=== PATIENT | female | born 1930 | race Caucasian/White ===

== ENCOUNTER 2017-12-25 18:45 | Observation (INO) ==
[2017-12-25 19:35] LABS: Bilirubin,Urine Negative (Negative); Blood,Urine Trace (Negative); Clarity,Urine Clear (Clear); Color,Urine Yellow (Yellow); Glucose,Urine (UA) Normal (Normal); Ketones,Urine Negative (Negative); Leukocyte Esterase,Urine Negative (Negative); Nitrite,Urine Negative (Negative); Protein,Urine Negative (Neg-Trace); Specific Gravity,Urine < 1.005 (1.010-1.025); Urobilinogen,Urine Normal (Normal)
[2017-12-25 19:37] LABS: Bacteria,Urine None Seen per hpf (None-Few); Hyaline Casts,Urine None Seen per lpf (None-Few); RBC,Urine 0-3 per hpf (0-3); Squamous Epithelial Cell,Urine Many per lpf (None-Few); WBC,Urine 0-3 per hpf (0-3)
[2017-12-25 19:45] LABS: Basophils # 0.1 K/mcL (0.0-0.2); Basophils % 0.6 %; Eosinophils # 0.3 K/mcL (0.0-0.6); Eosinophils % 3.9 %; Hematocrit 34.8 % (35.3-44.9); Immature Granulocytes % 0.7 % (0-4); Lymphocytes # 1.6 K/mcL (0.6-4.6); Lymphocytes % 18.8 %; Mean Corpuscular HGB Conc 34.5 g/dL (31.6-35.5); Mean Corpuscular Hemoglobin 30.1 pg (28.0-33.3); Mean Corpuscular Volume 87.2 fL (83.0-100.0); Mean Platelet Volume 9.1 fL (9.4-12.4); Monocytes # 1.3 K/mcL (0.0-1.3); Monocytes % 15.8 %; Platelet Count 280 K/mcL (140-400); Red Blood Count 3.99 M/mcL (3.82-4.97); Red Cell Distribution Width 12.3 % (11.5-14.5); Segmented Neutrophils % 60.2 %
[2017-12-25] MEDS ORDERED: 0.9 % Sodium Chloride 1,000 ML IVC ONE (19:49)
[2017-12-25 20:08] LABS: Alanine Aminotransferase 11 Units/L (7-52); Albumin 4.1 g/dL (3.5-5.7); Albumin/Globulin Ratio 1.4 (1.1-2.2); Alkaline Phosphatase 69 Units/L (34-104); Aspartate Amino Transferase 15 Units/L (13-39); BUN/Creatinine Ratio 14 (6-26); Bilirubin,Total 0.3 mg/dL (0.3-1.0); Blood Urea Nitrogen 12 mg/dL (8-23); Carbon Dioxide 22 mEq/L (23-29); Chloride 89 mEq/L (98-107); Creatine Kinase 122 Units/L (30-223); Globulin 2.9 g/dL (2.4-3.5); Glucose 121 mg/dL (70-105); Osmolality,Calculated 257 (280-300); Potassium 3.7 mEq/L (3.5-5.1); Sodium 123 mEq/L (136-145); Troponin I < 0.03 ng/mL (< 0.04); eGFR For Non-African Americans > 60 (> 60)
[2017-12-25 20:23] LABS: Magnesium 1.8 mg/dL (1.6-2.6)
[2017-12-25] MEDS ORDERED: Isovue-370 500 ML INFUS..BTL IV ONE (20:29)
--- NOTE | 2017-12-25 20:55 | Emergency Department Note ---
Disposition Clinical Impression: Hyponatremia, Weakness Disposition: Admitted As Inpatient Condition: Good Time of Disposition: 22:35 Weakness HPI - General Chief complaint: ED Weakness Stated complaint: Weakness Time Seen by Provider: 12/25/17 19:10 Source: patient, family Limitations: no limitations Nursing Notes Reviewed: Yes Vital Signs Reviewed: Yes - History of Present Illness HPI Narrative: 87-year-old female history of hypertension presents emergency department for malaise in weakness and diarrhea. Patient states for the past 2 weeks she is been feeling very tired and fatigued. She was recently evaluated for nights ago for some abdominal discomfort and diarrhea. CT scan showed diverticulosis. Labs showed low potassium and sodium level. She was recommended to follow with her primary care physician and to increase fluid intake. Her urine culture came back positive for E. coli and she was placed on Bactrim and has taken a total of one day of medication. She followed up with her primary care physician 2 days ago and was placed on Flagyl given her history of diverticulitis. Since then she has had some increase in loose stools and had 5 episodes today. She denies any fever. She does report a cough no shortness of breath or chest pain. No lightheadedness or syncope. She continues to have abdominal discomfort that she describes as her colon hurts. She points all over to her belly. No recent travel. No urinary symptoms at this time. History of cholecystectomy. Pt Subjective Complaint: generalized weakness/fatigue Pain Scale: 0 - Related Data Home Medications Medication Instructions Recorded Confirmed Cholecalciferol (Vitamin D3) 1,000 unit PO DAILY 12/25/17 12/25/17 [Vitamin D3] Cyanocobalamin (Vitamin B-12) 1,000 mcg PO DAILY 12/25/17 12/25/17 [Vitamin B12] Losartan/Hydrochlorothiazide 1 tab PO DAILY 12/25/17 12/25/17 [Losartan-Hctz 100-25 mg Tab] Meloxicam [Meloxicam] 15 mg PO DAILY 12/25/17 12/25/17 Metoprolol Succinate [Toprol Xl] 25 mg PO DAILY 12/25/17 12/25/17 Omeprazole [PriLOSEC] 20 mg PO BIDAC 12/25/17 12/25/17 Sulfamethoxazole/Trimeth DS 1 tab PO BID 12/25/17 12/25/17 [Bactrim Ds] metroNIDAZOLE [Flagyl] 500 mg PO Q8H 12/25/17 12/25/17 Allergies Allergy/AdvReac Type Severity Reaction Status Date / Time No Known Allergies Allergy Verified 12/25/17 18:50 All systems ED: reviewed and negative except as stated. Review of Systems: As Per HPI Constitutional: Reports: weakness. Denies: fever, chills ENT ED: Denies: congestion Cardiovascular: Denies: chest pain Respiratory: Reports: cough. Denies: dyspnea Gastrointestinal: Reports: abdominal pain, nausea, diarrhea. Denies: vomiting, hematochezia Genitourinary: Denies: urgency, dysuria Musculoskeletal: Denies: back pain Integumentary: Denies: rash Neurological: Reports: weakness. Denies: headache, paresthesias Endocrine: Reports: fatigue. Denies: heat or cold intolerance Hematological/Lymphatic: Denies: easy bleeding Past Medical History - Past Medical History Attestation: Yes The following information was validated with the patient. Source: patient Medical history: Reports: arthritis, GERD, hypertension, other Psychiatric history: Reports: no psych history - Social History Smoking Status: Never smoker Smokeless Tobacco Status: No Alcohol use: Reports: none Drug use: Reports: none Physical Exam - General Limitations: no limitations General appearance: alert, in no apparent distress - Head Head exam: atraumatic, normocephalic, normal inspection - Eye Eye exam: Present: normal appearance, PERRL, EOMI - ENT ENT exam: normal exam, normal oropharynx, mucous membranes dry - Neck Neck exam: Present: normal inspection, full ROM, trachea midline - Chest Chest inspection: Present: normal inspection, symmetric chest wall rise - Respiratory Respiratory exam: Present: normal lung sounds bilaterally. Absent: respiratory distress - Cardiovascular Cardiovascular exam: Present: regular rate, normal rhythm, normal heart sounds. Absent: tachycardia, systolic murmur, diastolic murmur - Abdominal Exam Abdominal exam: Present: soft, tenderness (Diffuse), normal bowel sounds. Absent: distention, guarding, rebound, rigidity, tenderness at McBurney's Point - Extremities Exam Extremities exam: Present: normal inspection, full ROM, normal capillary refill. Absent: tenderness, pedal edema - Back Exam Back exam: Present: normal inspection, full ROM. Absent: tenderness, CVA tenderness (R), CVA tenderness (L) - Neurological Exam Neurological exam: Present: alert, oriented X3, CN II-XII intact - Expanded Neurological Exam Patient oriented to: Present: person, place, time Cranial nerves: EOM function (II, III, IV, ): Normal, facial sensation (V): Normal, facial palsy (VII): Normal, gag reflex (IX): Normal, spinal accessory function (XI): Normal, tongue deviation (XII): Normal Motor strength - LUE: 5/5 Motor strength - RUE: 5/5 Motor strength - LLE: 5/5 Motor strength - RLE: 5/5 Coma Scale Eye Opening: Spontaneous Coma Scale Motor Response: Obeys Commands Coma Scale Verbal Response: Oriented Coma Scale Total: 15 - Psychiatric Psychiatric exam: Present: normal mood, flat affect - Skin Skin exam: Present: warm, dry, intact, normal color. Absent: rash, cyanosis, diaphoresis Course Course Narrative: Patient presents with persistent malaise weakness as well as persistent diarrhea. She states she just is not feel well. She denies any chest pain but does report cough. Recently diagnosed with urinary tract infection and was placed on additional antibiotics which could be contributing to the diarrhea. On examination she does appears slightly dry. Her heart is regular rate and rhythm. Her lungs are clear auscultation bilaterally. She does have some diffuse abdominal tenderness grimaces on examination. Otherwise her exam is unremarkable. Review of her prior visit she had a full workup which did reveal some slight electrolyte abnormalities. Her CT scan shows diverticulosis without any acute findings. At this time will repeat some labs in give her fluids. Will also check a influenza. She is in agreement this plan. - Reevaluation(s) Reevaluation #1: View for labs she has a worsening hyponatremia. She is chronically hyponatremia and they be secondary to some of her medication which includes hydrochlorothiazide. She does appear more usually make than hypovolemic and SIADH is also in the differential. Will plan for admission and observation with careful hydration and monitoring. CT angiogram of the abdomen and pelvis was unremarkable for any mesenteric ischemia. At this time patient is agreement with admission. - Consultations Consultation #1: Spoke with on-call hospitalist mabel Zelaya to admit for weakness and hyponatremia. No further orders at this time Time: 22:35 Vital Signs Temperature 98.8 F 12/25/17 18:47 Pulse Rate 82 12/25/17 18:47 Respiratory Rate 18 12/25/17 18:47 Blood Pressure 190/92 12/25/17 18:47 O2 Sat by Pulse Oximetry 97 12/25/17 18:47 Temperature 98.8 F 12/25/17 23:35 Pulse Rate 87 12/25/17 23:35 Respiratory Rate 16 12/25/17 23:35 Blood Pressure 145/73 12/25/17 23:35 O2 Sat by Pulse Oximetry 97 12/25/17 23:38 Oxygen Delivery Oxygen Delivery Room Air Weakness - MDM Narrative Medical decision making narrative: Patient was discussed with my attending physician who agrees with ED management and final disposition. They independently evaluated the patient. Please refer to their attestation to this encounter for additional information. This note was generated by [employer] voice recognition software and as a result grammatical or spelling errors may occur using this program. - Medical Records Medical records reviewed: Yes I reviewed the patient's medical records. - Lab Data Lab results reviewed: Yes I reviewed the patient's lab results. Result diagrams: 12/25/17 19:36 12/25/17 19:36 Lab Results 12/25/17 12/25/17 12/25/17 Range/Units 19:09 19:36 19:36 WBC 8.4 (4.3-11.1) K/mcL RBC 3.99 (3.82-4.97) M/mcL Hgb 12.0 (11.5-15.4) g/dL Hct 34.8 L (35.3-44.9) % MCV 87.2 (83.0-100.0) fL MCH 30.1 (28.0-33.3) pg MCHC 34.5 (31.6-35.5) g/dL RDW 12.3 (11.5-14.5) % Plt Count 280 (140-400) K/mcL MPV 9.1 L (9.4-12.4) fL Immature Gran % 0.7 (0-4) % Seg Neutrophils % 60.2 % Lymphocytes % 18.8 % Monocytes % 15.8 % Eosinophils % 3.9 % Basophils % 0.6 % Neutrophils # 5.0 (1.6-8.9) K/mcL Lymphocytes # 1.6 (0.6-4.6) K/mcL Monocytes # 1.3 (0.0-1.3) K/mcL Eosinophils # 0.3 (0.0-0.6) K/mcL Basophils # 0.1 (0.0-0.2) K/mcL Sodium 123 L (136-145) mEq/L Potassium 3.7 (3.5-5.1) mEq/L Chloride 89 L (98-107) mEq/L Carbon Dioxide 22 L (23-29) mEq/L BUN 12 (8-23) mg/dL Creatinine 0.88 (0.60-1.20) mg/dL Est GFR ( Amer) > 60 (> 60) Est GFR (Non-Af Amer) > 60 (> 60) BUN/Creatinine Ratio 14 (6-26) Glucose 121 H (70-105) mg/dL Calculated Osmolality 257 L (280-300) Lactic Acid (0.5-2.2) mmol/L Calcium 10.0 (8.6-10.3) mg/dL Magnesium 1.8 (1.6-2.6) mg/dL Total Bilirubin 0.3 (0.3-1.0) mg/dL AST 15 (13-39) Units/L ALT 11 (7-52) Units/L Alkaline Phosphatase 69 (34-104) Units/L Creatine Kinase 122 (30-223) Units/L Troponin I < 0.03 (< 0.04) ng/mL Serum Total Protein 7.0 (6.4-8.9) g/dL Albumin 4.1 (3.5-5.7) g/dL Globulin 2.9 (2.4-3.5) g/dL Albumin/Globulin Ratio 1.4 (1.1-2.2) Urine Color Yellow (Yellow) Urine Clarity Clear (Clear) Urine pH 7.0 (5.0-8.0) pH Units Ur Specific [place] < 1.005 L (1.010-1.025) Urine Protein Negative (Neg-Trace) mg/dL Urine Glucose (UA) Normal (Normal) mg/dL Urine Ketones Negative (Negative) mg/dL Urine Blood Trace H (Negative) Urine Nitrite Negative (Negative) Urine Bilirubin Negative (Negative) Urine Urobilinogen Normal (Normal) mg/dL Ur Leukocyte Esterase Negative (Negative) Urine Microscopic RBC 0-3 (0-3) per hpf Urine Microscopic WBC 0-3 (0-3) per hpf Ur Squamous Epith Cells Many H (None-Few) per lpf Urine Bacteria None Seen (None-Few) per hpf Hyaline Casts None Seen (None-Few) per lpf Ur Culture Indicated? NO (NO) 12/25/17 Range/Units 19:36 WBC (4.3-11.1) K/mcL RBC (3.82-4.97) M/mcL Hgb (11.5-15.4) g/dL Hct (35.3-44.9) % MCV (83.0-100.0) fL MCH (28.0-33.3) pg MCHC (31.6-35.5) g/dL RDW (11.5-14.5) % Plt Count (140-400) K/mcL MPV (9.4-12.4) fL Immature Gran % (0-4) % Seg Neutrophils % % Lymphocytes % % Monocytes % % Eosinophils % % Basophils % % Neutrophils # (1.6-8.9) K/mcL Lymphocytes # (0.6-4.6) K/mcL Monocytes # (0.0-1.3) K/mcL Eosinophils # (0.0-0.6) K/mcL Basophils # (0.0-0.2) K/mcL Sodium (136-145) mEq/L Potassium (3.5-5.1) mEq/L Chloride (98-107) mEq/L Carbon Dioxide (23-29) mEq/L BUN (8-23) mg/dL Creatinine (0.60-1.20) mg/dL Est GFR ( Amer) (> 60) Est GFR (Non-Af Amer) (> 60) BUN/Creatinine Ratio (6-26) Glucose (70-105) mg/dL Calculated Osmolality (280-300) Lactic Acid 1.2 (0.5-2.2) mmol/L Calcium (8.6-10.3) mg/dL Magnesium (1.6-2.6) mg/dL Total Bilirubin (0.3-1.0) mg/dL AST (13-39) Units/L ALT (7-52) Units/L Alkaline Phosphatase (34-104) Units/L Creatine Kinase (30-223) Units/L Troponin I (< 0.04) ng/mL Serum Total Protein (6.4-8.9) g/dL Albumin (3.5-5.7) g/dL Globulin (2.4-3.5) g/dL Albumin/Globulin Ratio (1.1-2.2) Urine Color (Yellow) Urine Clarity (Clear) Urine pH (5.0-8.0) pH Units Ur Specific [place] (1.010-1.025) Urine Protein (Neg-Trace) mg/dL Urine Glucose (UA) (Normal) mg/dL Urine Ketones (Negative) mg/dL Urine Blood (Negative) Urine Nitrite (Negative) Urine Bilirubin (Negative) Urine Urobilinogen (Normal) mg/dL Ur Leukocyte Esterase (Negative) Urine Microscopic RBC (0-3) per hpf Urine Microscopic WBC (0-3) per hpf Ur Squamous Epith Cells (None-Few) per lpf Urine Bacteria (None-Few) per hpf Hyaline Casts (None-Few) per lpf Ur Culture Indicated? (NO) - Radiology Data Radiology results reviewed: Yes I reviewed the patient's radiology results. Chest X-Ray 12/25/17 19:14 IMPRESSION: No evidence of acute cardiopulmonary disease. D/ / Moi Chavarria MD / Moi Chavarria MD Interpreting Provider: Moi Chavarria MD Abdomen/Pelvis CTA 12/25/17 20:29 IMPRESSION: 1. No acute vascular pathology appreciated. 2. Diverticulosis. No wall thickening or regional inflammation. 3. Tiny nonspecific appearing lymph nodes in the abdomen and pelvis. 4. Degenerating fibroids 12/21/2017 D/ / Andrew Posey / Andrew Posey Interpreting Provider: Andrew Posey - EKG Data EKG attestation: Yes I reviewed and interpreted this EKG. EKG results narrative: EKG performed 2041 normal sinus rhythm 71 beats per minute, good R wave progression, no ST elevation or depression, intervals within normal limits. Compared to prior EKG performed 12/21/2017 shows similar consistent findings of sinus rhythm. No acute ischemic changes.
--- NOTE | 2017-12-25 21:47 | Emergency Department Note ---
Disposition Clinical Impression: Hyponatremia Disposition: Admitted As Inpatient Referrals: Lukas Petersen DO [Primary Care Provider] - Forms: ED Satisfaction Letter General Adult HPI - General Chief complaint: ED Weakness Stated complaint: Weakness Time Seen by Provider: 12/25/17 19:10 Source: patient, family Limitations: no limitations - History of Present Illness Pain Scale: 0 - Related Data Home Medications Medication Instructions Recorded Confirmed Losartan/Hydrochlorothiazide 1 tab PO DAILY 12/25/17 12/25/17 [Losartan-Hctz 100-25 mg Tab] Meloxicam [Meloxicam] 15 mg PO DAILY 12/25/17 12/25/17 Metoprolol Succinate [Toprol Xl] 25 mg PO DAILY 12/25/17 12/25/17 Sulfamethoxazole/Trimeth DS 1 tab PO BID 12/25/17 12/25/17 [Bactrim Ds] metroNIDAZOLE [Flagyl] 500 mg PO Q8H 12/25/17 12/25/17 Allergies Allergy/AdvReac Type Severity Reaction Status Date / Time No Known Allergies Allergy Verified 12/25/17 18:50 Constitutional: Reports: weakness. Denies: fever, chills ENT ED: Denies: congestion Cardiovascular: Denies: chest pain Respiratory: Reports: cough. Denies: dyspnea Gastrointestinal: Reports: abdominal pain, nausea, diarrhea. Denies: vomiting, hematochezia Genitourinary: Denies: urgency, dysuria Musculoskeletal: Denies: back pain Integumentary: Denies: rash Neurological: Reports: weakness. Denies: headache, paresthesias Endocrine: Reports: fatigue. Denies: heat or cold intolerance Hematological/Lymphatic: Denies: easy bleeding Past Medical History - Past Medical History Medical history: Reports: arthritis, GERD, hypertension, other Psychiatric history: Reports: no psych history - Social History Smoking Status: Never smoker Smokeless Tobacco Status: No Alcohol use: Reports: none Drug use: Reports: none Physical Exam - General Limitations: no limitations General appearance: alert, in no apparent distress Course Vital Signs Temperature 98.8 F 12/25/17 18:47 Pulse Rate 82 12/25/17 18:47 Respiratory Rate 18 12/25/17 18:47 Blood Pressure 190/92 12/25/17 18:47 O2 Sat by Pulse Oximetry 97 12/25/17 18:47 Temperature 98.8 F 12/25/17 19:31 Pulse Rate 71 10/03/18 19:36 Respiratory Rate 16 12/25/17 19:36 Blood Pressure 180/81 12/25/17 19:36 O2 Sat by Pulse Oximetry 100 12/25/17 19:36 Oxygen Delivery Oxygen Delivery Room Air Medical Decision Making - Lab Data Result diagrams: 12/25/17 19:36 12/25/17 19:36 Lab Results 12/25/17 12/25/17 12/25/17 Range/Units 19:09 19:36 19:36 WBC 8.4 (4.3-11.1) K/mcL RBC 3.99 (3.82-4.97) M/mcL Hgb 12.0 (11.5-15.4) g/dL Hct 34.8 L (35.3-44.9) % MCV 87.2 (83.0-100.0) fL MCH 30.1 (28.0-33.3) pg MCHC 34.5 (31.6-35.5) g/dL RDW 12.3 (11.5-14.5) % Plt Count 280 (140-400) K/mcL MPV 9.1 L (9.4-12.4) fL Immature Gran % 0.7 (0-4) % Seg Neutrophils % 60.2 % Lymphocytes % 18.8 % Monocytes % 15.8 % Eosinophils % 3.9 % Basophils % 0.6 % Neutrophils # 5.0 (1.6-8.9) K/mcL Lymphocytes # 1.6 (0.6-4.6) K/mcL Monocytes # 1.3 (0.0-1.3) K/mcL Eosinophils # 0.3 (0.0-0.6) K/mcL Basophils # 0.1 (0.0-0.2) K/mcL Sodium 123 L (136-145) mEq/L Potassium 3.7 (3.5-5.1) mEq/L Chloride 89 L (98-107) mEq/L Carbon Dioxide 22 L (23-29) mEq/L BUN 12 (8-23) mg/dL Creatinine 0.88 (0.60-1.20) mg/dL Est GFR ( Amer) > 60 (> 60) Est GFR (Non-Af Amer) > 60 (> 60) BUN/Creatinine Ratio 14 (6-26) Glucose 121 H (70-105) mg/dL Calculated Osmolality 257 L (280-300) Lactic Acid (0.5-2.2) mmol/L Calcium 10.0 (8.6-10.3) mg/dL Magnesium 1.8 (1.6-2.6) mg/dL Total Bilirubin 0.3 (0.3-1.0) mg/dL AST 15 (13-39) Units/L ALT 11 (7-52) Units/L Alkaline Phosphatase 69 (34-104) Units/L Creatine Kinase 122 (30-223) Units/L Troponin I < 0.03 (< 0.04) ng/mL Serum Total Protein 7.0 (6.4-8.9) g/dL Albumin 4.1 (3.5-5.7) g/dL Globulin 2.9 (2.4-3.5) g/dL Albumin/Globulin Ratio 1.4 (1.1-2.2) Urine Color Yellow (Yellow) Urine Clarity Clear (Clear) Urine pH 7.0 (5.0-8.0) pH Units Ur Specific [place] < 1.005 L (1.010-1.025) Urine Protein Negative (Neg-Trace) mg/dL Urine Glucose (UA) Normal (Normal) mg/dL Urine Ketones Negative (Negative) mg/dL Urine Blood Trace H (Negative) Urine Nitrite Negative (Negative) Urine Bilirubin Negative (Negative) Urine Urobilinogen Normal (Normal) mg/dL Ur Leukocyte Esterase Negative (Negative) Urine Microscopic RBC 0-3 (0-3) per hpf Urine Microscopic WBC 0-3 (0-3) per hpf Ur Squamous Epith Cells Many H (None-Few) per lpf Urine Bacteria None Seen (None-Few) per hpf Hyaline Casts None Seen (None-Few) per lpf Ur Culture Indicated? NO (NO) 12/25/17 Range/Units 19:36 WBC (4.3-11.1) K/mcL RBC (3.82-4.97) M/mcL Hgb (11.5-15.4) g/dL Hct (35.3-44.9) % MCV (83.0-100.0) fL MCH (28.0-33.3) pg MCHC (31.6-35.5) g/dL RDW (11.5-14.5) % Plt Count (140-400) K/mcL MPV (9.4-12.4) fL Immature Gran % (0-4) % Seg Neutrophils % % Lymphocytes % % Monocytes % % Eosinophils % % Basophils % % Neutrophils # (1.6-8.9) K/mcL Lymphocytes # (0.6-4.6) K/mcL Monocytes # (0.0-1.3) K/mcL Eosinophils # (0.0-0.6) K/mcL Basophils # (0.0-0.2) K/mcL Sodium (136-145) mEq/L Potassium (3.5-5.1) mEq/L Chloride (98-107) mEq/L Carbon Dioxide (23-29) mEq/L BUN (8-23) mg/dL Creatinine (0.60-1.20) mg/dL Est GFR ( Amer) (> 60) Est GFR (Non-Af Amer) (> 60) BUN/Creatinine Ratio (6-26) Glucose (70-105) mg/dL Calculated Osmolality (280-300) Lactic Acid 1.2 (0.5-2.2) mmol/L Calcium (8.6-10.3) mg/dL Magnesium (1.6-2.6) mg/dL Total Bilirubin (0.3-1.0) mg/dL AST (13-39) Units/L ALT (7-52) Units/L Alkaline Phosphatase (34-104) Units/L Creatine Kinase (30-223) Units/L Troponin I (< 0.04) ng/mL Serum Total Protein (6.4-8.9) g/dL Albumin (3.5-5.7) g/dL Globulin (2.4-3.5) g/dL Albumin/Globulin Ratio (1.1-2.2) Urine Color (Yellow) Urine Clarity (Clear) Urine pH (5.0-8.0) pH Units Ur Specific [place] (1.010-1.025) Urine Protein (Neg-Trace) mg/dL Urine Glucose (UA) (Normal) mg/dL Urine Ketones (Negative) mg/dL Urine Blood (Negative) Urine Nitrite (Negative) Urine Bilirubin (Negative) Urine Urobilinogen (Normal) mg/dL Ur Leukocyte Esterase (Negative) Urine Microscopic RBC (0-3) per hpf Urine Microscopic WBC (0-3) per hpf Ur Squamous Epith Cells (None-Few) per lpf Urine Bacteria (None-Few) per hpf Hyaline Casts (None-Few) per lpf Ur Culture Indicated? (NO) Attestation Statement - Attestation Attestation: I examined this patient and my medical decision-making was reviewed with the Resident Physician. I agree with the documented findings, disposition and treatment plan as described except to the extent set forth below. 87 year old female prsentes ot the Ed as a bounce back and is still experiencing generalized weakness and was most recently treated for an infection and is nwo experiecing diarrhea. Patient is hyponatremic and is lower to her baseline which is typically upper 120s and today it is 123. We will hydrate and obtain a CTA chest and abdomen/pelvis as she was most recently scanned without contrast a few days ago. We will admit to medicine
[2017-12-26] MEDS ORDERED: Acetaminophen 325 MG TABLET PO PRN (00:11)
[2017-12-26] MEDS ORDERED: Naloxone 0.4 MG/ML INJ IVP PRN (01:39)
[2017-12-26] MEDS ORDERED: 0.9 % Sodium Chloride 1,000 ML IVC SCH ×2 (01:45→02:45)
--- NOTE | 2017-12-26 01:48 | Internal Med History&Physical ---
Date of Encounter: 12/26/17 Time of Encounter: 01:46 Internal Medicine - H&P: HPI Chief complaint: weakness Admitted From: Emergency Dept Plans for Post Hospital Care: Home History of present illness: Ms. Bradshaw is a 87 year old female with history of arthritis, GERD, hypertension and recent history of diverticulosis with diverticulitis who presents to the ED with complaint of 2 weeks history of weakness. She states that she has been treated recently for diverticulitis with antibiotics, and also with severe diarrhea which has only just started to resolve after the last couple of days. In the past 2 weeks she has become more and more weak, and feels that she is unable to really do anything around the house. He says that this all started when she was first diagnosed with diverticulitis and received antibiotics. She says in addition of this she has had very poor appetite and has not been eating as she normally does. Typically she also is very thirsty and drinks a lot of water, however she does not feel that she has been drinking as much water recently. She denies any fevers, chills, night sweats. She also denies any falls. She denies any changes to her medications recently other than the addition of antibiotics which are temporary. Only other complaint is abdominal pain which is associated with this diverticulitis. Significantly, the patient was recently seen and treated in the ED for Escherichia coli positive bacteriuria with Bactrim and Flagyl. Past Med Surg Social Fam HX - Past Medical History Medical history: arthritis, GERD, hypertension, other Additional medical history: Chronic neck pain. Psychiatric history: no psych history - Social History Smoking Status: Never smoker Smokeless Tobacco Status: No Alcohol use: none Drug use: none - Family History Mother Living Status: Age at : 85 Cause of : heart diease Father Living Status: Age at : 80 Cause of : COPD Hx Family Respiratory Disorders: Yes Brother Living Status: Age at : 66 Cause of : COPD Internal Medicine - H&P: Meds Cholecalciferol (Vitamin D3) [Vitamin D3] 1,000 unit PO DAILY 12/25/17 [History] Cyanocobalamin (Vitamin B-12) [Vitamin B12] 1,000 mcg PO DAILY 12/25/17 [History ] Losartan/Hydrochlorothiazide [Losartan-Hctz 100-25 mg Tab] 1 tab PO DAILY [History] Meloxicam [Meloxicam] 15 mg PO DAILY 12/25/17 [History] Metoprolol Succinate [Toprol Xl] 25 mg PO DAILY 12/25/17 [History] Omeprazole [PriLOSEC] 20 mg PO BIDAC 12/25/17 [History] Sulfamethoxazole/Trimeth DS [Bactrim Ds] 1 tab PO BID 12/25/17 [History] metroNIDAZOLE [Flagyl] 500 mg PO Q8H 12/25/17 [History] 3 Allergy/AdvReac Type Severity Reaction Status Date / Time No Known Allergies Allergy Verified 12/25/17 18:50 All Systems PM: A 10-system review of systems was performed and is negative for pertinent findings except as documented above in the HPI. Review of systems: Constitutional: Denies fevers, chills, weight loss. Admits to generalized fatigue and weakness EENT: Denies vision changes/blurriness, rhinorrhea, congestion, sore throat CVS: Denies chest pain, palpitations, GUTIERREZ, orthopnea, edema, PND Pulm: Denies SOB, cough, sputum, hemoptysis, wheezing GI: Admits to abdominal pain, nausea, some diarrhea. Denies constipation, melena, hematemasis : Denies dysuria, increased frequency, urgency, hematuria Heme: Denies ease of bleeding or bruising MSK: Denies joint pain, limited ROM Skin: Denies rashes, ulcers, color changes Neuro: Denies KOCH, paresthesias, focal deficits, ataxia - Constitutional Vitals: Temp Pulse Resp BP Pulse Ox 98.8 F 87 16 145/73 97 12/25/17 23:35 12/25/17 23:35 12/25/17 23:35 12/25/17 23:35 12/25/17 23:38 Exam: Gen: Vitals noted. No acute distress. Appears euvolemic on exam HEENT: Normocephalic, atraumatic Neck: Supple. No adenopathy. Cardiac: RRR, no murmur, +S1/S2 Pulmonary: CTA bilaterally, no wheezes, rales or rhonchi, equal chest expansion Abdomen: soft, very mild tenderness to palpation, no guarding Back: Nontender throughout. MSK: ROM intact, no joint swelling noted Extremities: no BLE edema, nontender calf, no cyanosis or clubbing Neuro: moves all extremities, no focal deficits. A&Ox3 Psych: Appropriate mood and behavior Internal Med - H&P Results - Labs CBC & Chem 7: 12/25/17 19:36 12/25/17 19:36 - Assessment and plan (1) Hyponatremia Current Visit: Yes Status: Acute Assessment and plan: Euvolemic hypoosmolar hyponatremia, Sodium 123 Likely secondary to use of thiazide diuretic, however patient has had diarrhea and poor by mouth intake as well I will check the patient's measured serum and urine osmolality Additionally I will restrict free water and start normal saline IV fluids at 60 mL an hour Checked every 4 hour sodium Goal sodium correction 6-8mEq in 24hr (2) Weakness Current Visit: Yes Status: Acute Assessment and plan: Likely secondary to hyponatremia and recent diverticulitis and UTI Additionally, patient has poor nutritional intake in setting of recent illness I will fix the underlying electrolyte abnormalities and encourage adequate nutritional intake Additionally I will get a PT consult (3) HTN (hypertension) Current Visit: Yes Status: Acute Assessment and plan: Hypertension, fluctuating on this admission We will continue losartan, hold HCTZ for hyponatremia Consider addition of another medication as needed Qualifiers: Hypertension type: essential hypertension Qualified Code(s): I10 - Essential (primary) hypertension (4) Abdominal pain Current Visit: No Status: Acute Assessment and plan: Likely secondary to diverticulosis Do not suspect diverticulitis at this time Hold flagyl, continue to monitor Qualifiers: Abdominal location: generalized Qualified Code(s): R10.84 - Generalized abdominal pain (5) Diarrhea Current Visit: Yes Status: Acute Assessment and plan: Diarrhea in setting of antibiotic use C. Diff toxin pending Patient is in contact precautions We will hold Flagyl for now Qualifiers: Diarrhea type: presumed infectious Qualified Code(s): R19.7 - Diarrhea, unspecified (6) DVT prophylaxis Current Visit: Yes Status: Acute - Time Spent With Patient Total time spent is greater than 50% in coordination of care (as documented) at patient's floor/unit and/or counseling patient:
[2017-12-26] MEDS ORDERED: Famotidine 20 MG/2 ML VIAL IVP ONE (02:48)
[2017-12-26] MEDS ORDERED: metroNIDAZOLE 500 MG TABLET PO SCH (06:00)
[2017-12-26 07:22] LABS: BUN/Creatinine Ratio 9 (6-26); Blood Urea Nitrogen 8 mg/dL (8-23); Calcium 10.1 mg/dL (8.6-10.3); Carbon Dioxide 22 mEq/L (23-29); Chloride 99 mEq/L (98-107); Glucose 95 mg/dL (70-105); Magnesium 1.9 mg/dL (1.6-2.6); Osmolality,Calculated 270 (280-300); Potassium 4.3 mEq/L (3.5-5.1); Sodium 131 mEq/L (136-145); eGFR For Non-African Americans > 60 (> 60)
[2017-12-26] MEDS: Metoprolol XL (24 HR) Succ 25 MG TAB.ER.24H PO SCH (08:34)
[2017-12-26 11:27] LABS: BUN/Creatinine Ratio 9 (6-26); Blood Urea Nitrogen 8 mg/dL (8-23); Calcium 10.3 mg/dL (8.6-10.3); Carbon Dioxide 27 mEq/L (23-29); Chloride 96 mEq/L (98-107); Glucose 91 mg/dL (70-105); Osmolality,Calculated 268 (280-300); Potassium 4.2 mEq/L (3.5-5.1); Sodium 130 mEq/L (136-145); eGFR For Non-African Americans 57 (> 60)
--- NOTE | 2017-12-26 14:49 | Electrocardiograph Report ---
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
--- NOTE | 2017-12-26 17:15 | Event Note ---
Date of Encounter: 12/26/17 Time of Encounter: 17:13 Sodium level slowly improving. Resuming fluids for now. Will continue to monitor sodium levels. No acute changes during the night. Vitals stable. Will check sodium studies.
[2017-12-26] MEDS: 0.9 % Sodium Chloride 1,000 ML IVC SCH (18:29)
[2017-12-27] MEDS: Metoprolol XL (24 HR) Succ 25 MG TAB.ER.24H PO SCH (09:33)
[2017-12-27] MEDS: amLODIPine 5 MG TABLET PO SCH (09:33)
--- NOTE | 2017-12-27 17:49 | Internal Med Progress Note ---
Hospitalist Progress Note - Encounter Date of Encounter: 12/27/17 Time of Encounter: 17:47 - Subjective Interval History: Pt pleasant states she is feeling better. Na slowly improving. Denies fever or chills, N/V or diarrhea. Reports painful flatus and indigestions. Also reporting arthritic pain. Family at bedside. - Exam Vitals: Temp Pulse Resp BP Pulse Ox 98.1 F 70 16 135/82 96 12/27/17 15:20 12/27/17 15:20 12/27/17 15:20 12/27/17 15:20 12/27/17 15:20 Exam: Gen: Vitals noted. No acute distress. Appears euvolemic on exam HEENT: Normocephalic, atraumatic Neck: Supple. No adenopathy. Cardiac: RRR, no murmur, +S1/S2 Pulmonary: CTA bilaterally, no wheezes, rales or rhonchi, equal chest expansion Abdomen: soft, very mild tenderness to palpation, no guarding Back: Nontender throughout. MSK: ROM intact, no joint swelling noted Extremities: no BLE edema, nontender calf, no cyanosis or clubbing Neuro: moves all extremities, no focal deficits. A&Ox3 Psych: Appropriate mood and behavior - Assessment and Plan (1) Hyponatremia Current Visit: Yes Status: Acute Assessment and Plan: Euvolemic hypoosmolar hyponatremia, Sodium 123 Likely secondary to use of thiazide diuretic, however patient has had diarrhea and poor by mouth intake as well Based on sodium studies, agree that likely due to diuretic +/- diarrhea/poor intake. On normal saline IV fluids at 75 mL an hour and slowly responding. Checking Na every 4 hour to prevent rapid correction. NA now at 133. (2) Abdominal pain Current Visit: No Status: Acute Assessment and Plan: Likely secondary to diverticulosis Do not suspect diverticulitis at this time Hold flagyl, continue to monitor. Will give Tums and or gas X (3) Weakness Current Visit: Yes Status: Acute Assessment and Plan: Likely secondary to hyponatremia and recent diverticulitis and UTI Additionally, patient has poor nutritional intake in setting of recent illness I will fix the underlying electrolyte abnormalities and encourage adequate nutritional intake PT consulting (4) DVT prophylaxis Current Visit: Yes Status: Acute Assessment and Plan: scd (5) HTN (hypertension) Current Visit: Yes Status: Acute Assessment and Plan: Hypertension, fluctuating on this admission Losartan continued but holding HCTZ for hyponatremia Adding Norvasc (6) Diarrhea Current Visit: Yes Status: Acute - Time Spent with Patient Total time spent is greater than 50% in coordination of care (as documented) at patient's floor/unit and/or counseling patient: Internal Medicine: Result - Labs CBC & Chem 7: 12/25/17 19:36 12/27/17 17:37 Labs: BMP 12/26/17 12/27/17 12/27/17 20:11 00:22 05:14 Sodium 129 L 128 L 130 L 12/27/17 12/27/17 09:38 11:43 Sodium 132 L 133 L Consult Discharge Plan - Plan Referrals: Lukas Petersen DO [Primary Care Provider] - (2) Abdominal pain Qualifiers: Abdominal location: generalized Qualified Code(s): R10.84 - Generalized abdominal pain (5) HTN (hypertension) Qualifiers: Hypertension type: essential hypertension Qualified Code(s): I10 - Essential (primary) hypertension (6) Diarrhea Qualifiers: Diarrhea type: presumed infectious Qualified Code(s): R19.7 - Diarrhea, unspecified
[2017-12-27] MEDS: 0.9 % Sodium Chloride 1,000 ML IVC SCH ×3 (19:07→23:30)
[2017-12-27] MEDS ORDERED: Ibuprofen 400 MG TABLET PO PRN (19:45)
[2017-12-27] MEDS ORDERED: Simethicone 80 MG TAB.CHEW PO PRN (19:46)
[2017-12-27] MEDS: rOPINIRole 1 MG TABLET PO SCH (22:00)
[2017-12-27] MEDS ORDERED: Ondansetron 4 MG/2 ML VIAL IVP PRN (23:42)
[2017-12-28 09:16] LABS: Basophils % 0.6 %; Eosinophils # 0.3 K/mcL (0.0-0.6); Eosinophils % 4.3 %; Hemoglobin 12.5 g/dL (11.5-15.4); Immature Granulocytes % 0.6 % (0-4); Lymphocytes # 1.8 K/mcL (0.6-4.6); Lymphocytes % 26.4 %; Mean Corpuscular HGB Conc 33.8 g/dL (31.6-35.5); Mean Corpuscular Hemoglobin 30.4 pg (28.0-33.3); Mean Platelet Volume 8.9 fL (9.4-12.4); Monocytes # 0.6 K/mcL (0.0-1.3); Monocytes % 9.3 %; Platelet Count 294 K/mcL (140-400); Red Blood Count 4.11 M/mcL (3.82-4.97); Red Cell Distribution Width 12.9 % (11.5-14.5); Segmented Neutrophils % 58.8 %
[2017-12-28 09:46] LABS: BUN/Creatinine Ratio 16 (6-26); Blood Urea Nitrogen 10 mg/dL (8-23); Calcium 9.7 mg/dL (8.6-10.3); Carbon Dioxide 22 mEq/L (23-29); Chloride 99 mEq/L (98-107); Glucose 132 mg/dL (70-105); Osmolality,Calculated 267 (280-300); Sodium 128 mEq/L (136-145); eGFR For Non-African Americans > 60 (> 60)
[2017-12-28] MEDS: Metoprolol XL (24 HR) Succ 25 MG TAB.ER.24H PO SCH (09:50)
[2017-12-28] MEDS: amLODIPine 5 MG TABLET PO SCH (09:50)
[2017-12-28] MEDS: 0.9 % Sodium Chloride 1,000 ML IVC SCH (11:24)
--- NOTE | 2017-12-28 11:43 | Internal Med Progress Note ---
<JossJeffery loaiza - Last Filed: 12/28/17 12:50> Hospitalist Progress Note - Encounter Date of Encounter: 12/28/17 Time of Encounter: 10:10 - Subjective Interval History: Ms. Bradshaw was seen and examined at bedside this morning. Overall she states that she is doing well with no complaints of lightheadedness, dizziness, chest pain, SOB. She does have some mild nausea this morning and had some brief epigastric pain which has resolved. She was able to eat some breakfast but also admitted to an episode of black stool yesterday evening. - Exam Vitals: Temp Pulse Resp BP Pulse Ox 98.3 F 79 16 176/83 99 12/28/17 07:45 12/28/17 07:45 12/28/17 07:45 12/28/17 07:45 12/28/17 07:45 Exam: Gen: Vitals noted. No acute distress. Appears euvolemic on exam HEENT: Normocephalic, atraumatic, MMM Cardiac: RRR, no murmur, +S1/S2 Pulmonary: CTA bilaterally, no wheezes, rales or rhonchi, equal chest expansion Abdomen: soft, no tenderness to palpation, no guarding MSK: ROM intact, no joint swelling noted Extremities: no BLE edema, nontender calf, no cyanosis or clubbing Neuro: moves all extremities, no focal deficits. A&Ox3 Psych: Appropriate mood and behavior - Assessment and Plan (1) Hyponatremia Current Visit: Yes Status: Acute Assessment and Plan: -Euvolemic hypoosmolar hyponatremia, Sodium 129, improving from admission - Likely secondary to use of thiazide diuretic, however patient has had diarrhea and poor by mouth intake as well - Based on sodium studies (serum osm 260s, urine osm 298, urine Na 77), may be related to HCTZ and poor oral intake, however if not improving with need to rule out thyroid or adrenal causes if not improving. - Patient is asymptomatic at this time. Plan - On normal saline IV fluids at 75 mL an hour and slowly responding, lost IV access and has not been receiving fluids. Will continue once new IV placed. - Will continue to hold HCTZ, BP has been mildly elevated in 150s systolic - TSH with AM labs. - Encourage oral intake - Will continue morning labs with additional Na draw this afternoon. (2) Abdominal pain Current Visit: Yes Status: Resolved Assessment and Plan: - Resolved at this time. - Unclear etiology, possible gastritis vs PUD as patient did complain of dark stools and epigastric pain - Has been getting ibuprofen for pain control, will discontinue - Has home PPI (omeprazole 20mg BID) which was escalated to Protonix 40mg BID this AM - FOBT negative this AM, will continue to monitor H/H Plan - Continue to monitor H/H - Continue PPI, stop NSAID - Zofran PRN nausea (3) Weakness Current Visit: Yes Status: Acute Assessment and Plan: Likely secondary to hyponatremia and deconditioning. Additionally, patient has poor nutritional intake in setting of recent illness I will fix the underlying electrolyte abnormalities and encourage adequate nutritional intake PT consulted (4) HTN (hypertension) Current Visit: Yes Status: Acute Assessment and Plan: Hypertension, fluctuating on this admission, most recent readings around 151/84 home Losartan and norvasc added but holding HCTZ for hyponatremia will continue to monitor and likely discharge home on losartan and norvasc. (5) DVT prophylaxis Current Visit: Yes Status: Acute Assessment and Plan: scd (6) Diarrhea Current Visit: Yes Status: Resolved Assessment and Plan: Improving Patient reports multiple conversations about increasing fiber intake with PCP but has not Low suspicion for c.diff and does not appear to be diverticulitis flare given improvement and no pain today Encouraged fiber intake with possible supplementation to be discussed with PCP - Time Spent with Patient Total time spent is greater than 50% in coordination of care (as documented) at patient's floor/unit and/or counseling patient: Internal Medicine: Result - Labs CBC & Chem 7: 12/28/17 09:08 12/28/17 09:08 Labs: Short CBC 12/28/17 Range/Units 09:08 WBC 6.8 (4.3-11.1) K/mcL Hgb 12.5 (11.5-15.4) g/dL Hct 37.0 (35.3-44.9) % Plt Count 294 (140-400) K/mcL Neutrophils # 4.0 (1.6-8.9) K/mcL BMP 12/27/17 12/27/17 12/27/17 11:43 17:37 21:27 Sodium 133 L 129 L 132 L Potassium Chloride Carbon Dioxide BUN Creatinine Glucose Calcium 12/28/17 09:08 Sodium 128 L Potassium 4.0 Chloride 99 Carbon Dioxide 22 L BUN 10 Creatinine 0.61 Glucose 132 H Calcium 9.7 Consult Discharge Plan - Plan Referrals: Luaks Petersen DO [Primary Care Provider] - <Karena Deleon - Last Filed: 12/28/17 13:27> Hospitalist Progress Note - Encounter Date of Encounter: 12/28/17 - Exam Vitals: Temp Pulse Resp BP Pulse Ox 98.2 F 83 16 151/84 96 12/28/17 11:46 12/28/17 11:46 12/28/17 11:46 12/28/17 11:46 12/28/17 11:46 - Assessment and Plan (1) Abdominal pain Current Visit: Yes Status: Resolved (2) Hyponatremia Current Visit: Yes Status: Acute (3) Weakness Current Visit: Yes Status: Acute (4) DVT prophylaxis Current Visit: Yes Status: Acute (5) HTN (hypertension) Current Visit: Yes Status: Acute (6) Diarrhea Current Visit: Yes Status: Resolved - Time Spent with Patient Total time spent is greater than 50% in coordination of care (as documented) at patient's floor/unit and/or counseling patient: Internal Medicine: Result - Labs CBC & Chem 7: 12/28/17 09:08 12/28/17 09:08 Labs: Short CBC 12/28/17 Range/Units 09:08 WBC 6.8 (4.3-11.1) K/mcL Hgb 12.5 (11.5-15.4) g/dL Hct 37.0 (35.3-44.9) % Plt Count 294 (140-400) K/mcL Neutrophils # 4.0 (1.6-8.9) K/mcL BMP 12/27/17 12/27/17 12/28/17 17:37 21:27 09:08 Sodium 129 L 132 L 128 L Potassium 4.0 Chloride 99 Carbon Dioxide 22 L BUN 10 Creatinine 0.61 Glucose 132 H Calcium 9.7 - Attending Attestation I examined this patient and my medical decision-making was reviewed with the Resident Physician Dr Rhoades. I agree with the documented findings, disposition and treatment plan as described except to the extent set forth below. Ms Bradshaw was admitted with weakness and diarrhea and found to be hyponatremic from her baseline and to have addl complaint of abd pain. Awake, family present, having luq discomfort and had nausea after nighttime meds administered last night. aching discomfort. no longer having any diarrhea this admission. did not black stool last evening. denies fevers, chills. No confusion or lethargy and weakness is overall improved from admit gen- alert, awake,appears stated age cv- reg rate and rhythm, normal s1,s2, no murmurs appreciated lungs- ctabl, no wheezing, rhonchi or crackles abd- soft, denies tender to palpation, no guarding, no rigidity, non distended, + bs skin- no pallor, no jaundice neuro- AAOx3, CN grossly intact Hyponatremia- resume ivfs when iv access re established then check na level in afternoon to confirm appropriate increase, she has no cognitive deficits, no apparent tsh check this admit, will obtain in am epigastric discomfort/nausea - imaging reviewed, hold motrin, start ppi iv, check lipase, prn anti emetic single episode pt reported melenotic stool - fobt neg this morning, hgb normal and increased from prior, no hd instability, hold motrin, IV PPI started, cont to monitor <Jeffery Rhoades - Last Filed: 12/28/17 12:50> (2) Abdominal pain Qualifiers: Abdominal location: generalized Qualified Code(s): R10.84 - Generalized abdominal pain (4) HTN (hypertension) Qualifiers: Hypertension type: essential hypertension Qualified Code(s): I10 - Essential (primary) hypertension (6) Diarrhea Qualifiers: Diarrhea type: unspecified type Qualified Code(s): R19.7 - Diarrhea, unspecified <Karena Deleon - Last Filed: 12/28/17 13:27> (1) Abdominal pain Qualifiers: Abdominal location: generalized Qualified Code(s): R10.84 - Generalized abdominal pain (5) HTN (hypertension) Qualifiers: Hypertension type: essential hypertension Qualified Code(s): I10 - Essential (primary) hypertension (6) Diarrhea Qualifiers: Diarrhea type: unspecified type Qualified Code(s): R19.7 - Diarrhea, unspecified
[2017-12-28] MEDS: Pantoprazole 40 MG VIAL IVP SCH (17:06)
[2017-12-28] MEDS: rOPINIRole 1 MG TABLET PO SCH ×2 (21:05→21:12)
[2017-12-29] MEDS: 0.9 % Sodium Chloride 1,000 ML IVC SCH (01:18)
[2017-12-29] MEDS: Pantoprazole 40 MG VIAL IVP SCH (05:34)
[2017-12-29 05:37] LABS: Basophils % 0.6 %; Eosinophils # 0.4 K/mcL (0.0-0.6); Eosinophils % 6.6 %; Hemoglobin 11.6 g/dL (11.5-15.4); Immature Granulocytes % 0.4 % (0-4); Lymphocytes % 30.2 %; Mean Corpuscular HGB Conc 33.1 g/dL (31.6-35.5); Mean Corpuscular Volume 90.4 fL (83.0-100.0); Mean Platelet Volume 9.3 fL (9.4-12.4); Monocytes # 0.8 K/mcL (0.0-1.3); Monocytes % 11.7 %; Neutrophils # 3.4 K/mcL (1.6-8.9); Platelet Count 277 K/mcL (140-400); Red Blood Count 3.87 M/mcL (3.82-4.97); Segmented Neutrophils % 50.5 %
[2017-12-29 05:58] LABS: BUN/Creatinine Ratio 19 (6-26); Blood Urea Nitrogen 10 mg/dL (8-23); Calcium 9.6 mg/dL (8.6-10.3); Carbon Dioxide 23 mEq/L (23-29); Chloride 102 mEq/L (98-107); Glucose 97 mg/dL (70-105); Osmolality,Calculated 273 (280-300); Potassium 3.7 mEq/L (3.5-5.1); Sodium 132 mEq/L (136-145); eGFR For Non-African Americans > 60 (> 60)
[2017-12-29 06:11] LABS: Thyroid Stimulating Hormone 4.457 mcIU/mL (0.340-5.600)
[2017-12-29 07:57] VITALS: BP 159/85
[2017-12-29] MEDS: amLODIPine 5 MG TABLET PO SCH (08:41)
[2017-12-29] MEDS: Metoprolol XL (24 HR) Succ 25 MG TAB.ER.24H PO SCH (08:41)
--- NOTE | 2017-12-29 11:12 | Discharge Summary ---
- NOTES TO OUTPATIENT PROVIDER Notes to Outpatient Provider: Given report of abd pain and recent diverticulitis ct scan obtained that was negative for any causes of pain. Her sodium was lower than her baseline and improved with holding hctz and giving gentle ivfs. She is being discharged with norvasc and continuation of home lopressor and losartan as BP was elevated above goal without hctz. She complained of ruq discomfort and possible single episode black stool. NSAID was stopped and started on PPI with resolution of symptoms. Bms have been brown and fobt negative. Rec follow up of this issue to see if return of symptoms or egd required outpt. She was asymptomatic and to baseline on discharge with med recs as above. FU with pcp in 3-5 days for BP, bmp and hgb checks. Date of Encounter: 12/29/17 Time of Encounter: 10:20 - Discharge Diagnosis (1) Abdominal pain Priority: Primary Status: Resolved Assessment and Plan: - Resolved at this time. Most likely gastritis, cannot rule out PUD as patient did report single possible black stool while admitted and ruq pain with nsaid use CTA a/p: 1. No acute vascular pathology appreciated. 2. Diverticulosis. No wall thickening or regional inflammation. 3. Tiny nonspecific appearing lymph nodes in the abdomen and pelvis. 4. Degenerating fibroids 12/21/2017 FOBT negative, hemoglobin normal and no changes Her symptoms resolved with cessation of nsaid and initiation of PPI, she is requesting dc to home and will fu with PCP with note made to assess for need for egd outpt if any further symptoms or any other episodes of stool that appears black -PPI on dc, avoid nsaids, pcp fu Qualifiers: Abdominal location: generalized Qualified Code(s): R10.84 - Generalized abdominal pain (2) Hyponatremia Priority: Secondary Status: Acute Assessment and Plan: -Euvolemic hypoosmolar hyponatremia, Sodium 129, improved to 132 on discharge - Likely secondary to use of thiazide diuretic, however patient has had diarrhea and poor by mouth intake as well prior to admit - Based on sodium studies (serum osm 260s, urine osm 298, urine Na 77), may be related to HCTZ and poor oral intake, TSH wnl - Patient is asymptomatic - On normal saline IV fluids at 75 mL this admission with slow uptrend, only decrease was when IV access for lost for some time, pt now with oral intake improved to baseline - Will continue to hold HCTZ on dc, fu wiht pcp for repeat bmp within 3-5 days (3) Weakness Priority: Secondary Status: Resolved Assessment and Plan: Likely secondary to hyponatremia and deconditioning. Now resolved and back to baseline Additionally, patient has poor nutritional intake in setting of recent illness was evaluated by pt/ot and no addl needs (4) DVT prophylaxis Priority: Secondary Status: Acute Assessment and Plan: scd (5) HTN (hypertension) Priority: Secondary Status: Chronic Assessment and Plan: Hypertension, fluctuating on this admission, more recently 120-150 sbp/80s home Losartan continued, hctz held as above, norvasc added -cont current regimen on dc and fu with pcp for further outpt monitoring and management Qualifiers: Hypertension type: essential hypertension Qualified Code(s): I10 - Essential (primary) hypertension (6) Diarrhea Priority: Secondary Status: Resolved Assessment and Plan: resolved, and on further clarification by pt it resolved prior to admission with soft stools while here She takes miralax at home daily, but was not taking it during the time she noted diarrhea after last hospitalization family at bedside 12/27 confirmed no diarrhea here Patient reports multiple conversations about increasing fiber intake with PCP but has not Low suspicion for c.diff and does not appear to be diverticulitis flare given improvement, no pain and negative ct findings Encouraged fiber intake with possible supplementation to be discussed with PCP Qualifiers: Diarrhea type: unspecified type Qualified Code(s): R19.7 - Diarrhea, unspecified Hospital course: Ms. Bradshaw is a 87 year old female who presented to ED with recent diverticulitis with diarrhea, now resolved, but abdominal pain, generalized weakness and fatigue. She was found to have hyponatremia suspected to be secondary to hypovolemia from recent diarrhea current poor oral intake and hctz use. She was treated with gentle IVF hydration, she had no cognitive deficits and as she increased her oral intake as well, sodium appropriately uptrended. Her abdomen was imaged and no infectious or vascular sources of abd pain could be identified. She complained of vague aching in ruq and occassional nausea. As this provider took over case, she noted potentially black soft bm the day prior. The motrin prescribed by previous team was discontinued and stool fobt sent. She had no other bms that were black, only brown and fobt testing was negative. Her symptoms resolved with protonix and holding of motrin and she felt back to baseline and eager for discharge today. Blood pressure medications were adjusted and norvasc added this admission. pt/ot identified no addl needs and she was back to baseline energy level at discharge. She is discharging to home with pcp follow up, ppi, no nsaids, and outpt hgb and bmp checks. outpt egd if any symptoms return and can be facilitated by outpt provider. Discharge discussed with: patient, family - Time Spent with Patient Total time spent providing and/or coordinating discharge services: Less than 30 minutes - Discharge Medications Prescriptions: amLODIPine [Norvasc] 5 mg PO DAILY #30 tablet Losartan [Cozaar] 100 mg PO DAILY #30 tablet Home Medications: Cholecalciferol (Vitamin D3) [Vitamin D3] 1,000 unit PO DAILY 12/25/17 [History] Cyanocobalamin (Vitamin B-12) [Vitamin B12] 1,000 mcg PO DAILY 12/25/17 [History ] Metoprolol Succinate [Toprol Xl] 25 mg PO DAILY 12/25/17 [History] Omeprazole [PriLOSEC] 20 mg PO BIDAC 12/25/17 [History] Losartan [Cozaar] 100 mg PO DAILY #30 tablet 12/29/17 [Rx] amLODIPine [Norvasc] 5 mg PO DAILY #30 tablet 12/29/17 [Rx] Allergies/Adverse Reactions: 3 Allergy/AdvReac Type Severity Reaction Status Date / Time No Known Allergies Allergy Verified 12/25/17 18:50 Date of admission: 12/25/17 22:42 Primary care physician: Lukas Petersen DO Consults: 12/26/17 01:57 PT [Consult to Physical Therapy] [CONS] Routine Comment: Evaluate, develop and implement POC Reason for Consult: weakness/deconditoning Does patient have active BEDREST order?: No Is patient medically & hemodynamically stable?: Yes Discharging clinician: Karena Deleon - Constitutional Vitals: Temp Pulse Resp BP Pulse Ox 97.9 F 66 16 159/85 98 12/29/17 07:57 12/29/17 07:57 12/29/17 07:57 12/29/17 07:57 12/29/17 07:57 Exam: Gen: awake, alert, nad, smiling and pleasant HEENT: Normocephalic, atraumatic, MMM Cardiac: RRR, no murmur, +S1/S2, no le edema Pulmonary: CTA bilaterally, no wheezes, rales or rhonchi, equal chest expansion on ra Abdomen: soft, no tenderness to palpation, no guarding, + bs, non distended Neuro: moves all extremities, no focal deficits. A&Ox3, CN grossly intact - Patient Status Disposition: Home, Self-Care Condition: Good Overall status at discharge: patient is back to baseline - Discharge Instructions Follow Up With: Lukas Petersen, [Primary Care Provider] - (Unable to schedule follow up appointment due to office being closed. Please call saturday to schedule appointment 7-10 days from date of discharge. ) - Diet and Activity Activity: increase activity as tolerated
== END 2017-12-29 12:14 | disposition home or self-care (01) ==
LOC: EMEROOARM 18:45 → 3BNU 18:45 → SUATTDRO 22:42 → 3BNU 23:33
PROVIDERS: ADMIT Pediatrics; ATTEND Internal Medicine

== ENCOUNTER 2018-06-21 07:57 | Observation (INO) ==
[2018-06-21] MEDS ORDERED: Ipratropium/Albuterol Neb 3 ML IH ONE (08:20)
[2018-06-21] MEDS ORDERED: cefTRIAXone 1,000 MG in Water for inj. (sterile) 20 ML 10 ML IVP ONE (08:20)
--- NOTE | 2018-06-21 08:26 | Emergency Department Note ---
Disposition Clinical Impression: Difficulty breathing Reactive airway disease with acute exacerbation Qualifiers: Asthma severity: unspecified severity Asthma persistence: unspecified Qualified Code(s): J45.901 - Unspecified asthma with (acute) exacerbation Disposition: Admitted As Inpatient Condition: Good Referrals: Lukas Petersen DO [Primary Care Provider] - Forms: ED Satisfaction Letter Time of Disposition: 13:01 General Adult HPI - General Chief complaint: ED Shortness of Breath/Dyspnea Stated complaint: pneumonia Time Seen by Provider: 06/21/18 08:01 Source: patient, family Mode of arrival: private vehicle Limitations: no limitations Nursing Notes Reviewed: Yes Vital Signs Reviewed: Yes - History of Present Illness HPI Narrative: Noy Morrison is a pleasant 88-year-old female. She presents the emergency room with a chief complaint of worsening shortness of breath following a diagnosis at an outpatient urgent care yesterday. Patient's past medical history includes hypertension for which takes medication. She denies any other medication past medical history. She was diagnosed with pneumonia yesterday given a Z-Tay and oral prednisone. She states that over the night she her cough was worse and she "does not feel very well". She denies fevers chest pain shortness of breath. She is otherwise healthy. Onset (ago): day(s) Pain Scale: 2 - Related Data Home Medications Medication Instructions Recorded Confirmed Cholecalciferol (Vitamin D3) 1,000 unit PO DAILY 12/25/17 12/25/17 [Vitamin D3] Cyanocobalamin (Vitamin B-12) 1,000 mcg PO DAILY 12/25/17 12/25/17 [Vitamin B12] Metoprolol Succinate [Toprol Xl] 25 mg PO DAILY 12/25/17 12/25/17 Omeprazole [PriLOSEC] 20 mg PO BIDAC 12/25/17 12/25/17 Previous Rx's Medication Instructions Recorded Losartan [Cozaar] 100 mg PO DAILY #30 tablet 12/29/17 amLODIPine [Norvasc] 5 mg PO DAILY #30 tablet 12/29/17 Allergies Allergy/AdvReac Type Severity Reaction Status Date / Time No Known Allergies Allergy Verified 12/25/17 18:50 All systems ED: reviewed and negative except as stated. Review of Systems: As Per HPI Past Medical History - Past Medical History Medical history: Reports: arthritis, GERD, hypertension, other Psychiatric history: Reports: no psych history - Social History Smoking Status: Never smoker Smokeless Tobacco Status: No Alcohol use: Reports: none Drug use: Reports: none Physical Exam - General Limitations: no limitations General appearance: alert, in no apparent distress - Head Head exam: atraumatic - Eye Eye exam: Present: normal appearance - ENT ENT exam: normal exam, normal oropharynx - Neck Neck exam: Present: normal inspection - Respiratory Respiratory exam: Present: respiratory distress, wheezes (inspiratory and expiratory) - Cardiovascular Cardiovascular exam: Present: regular rate - Abdominal Exam Abdominal exam: Present: Non-Tender Course Course Narrative: Plan DuoNeb treatments, patient was still indicating respiratory distress and she did not feel well. Vital Signs Temperature 98.8 F 06/21/18 08:00 Pulse Rate 85 06/21/18 08:00 Respiratory Rate 20 06/21/18 08:00 Blood Pressure 166/92 06/21/18 08:00 O2 Sat by Pulse Oximetry 99 06/21/18 08:00 Temperature 98.8 F 06/21/18 08:00 Pulse Rate 98 06/21/18 12:08 Respiratory Rate 14 06/21/18 12:08 Blood Pressure 148/77 06/21/18 12:08 O2 Sat by Pulse Oximetry 100 06/21/18 12:08 Oxygen Delivery Oxygen Delivery Room Air Medical Decision Making - Medical Records Medical records reviewed: Yes I reviewed the patient's medical records. - Lab Data Lab results reviewed: Yes I reviewed the patient's lab results. Result diagrams: 06/21/18 08:21 06/21/18 08:21 Lab Results 06/21/18 06/21/18 06/21/18 Range/Units 08:21 08:21 08:21 WBC 18.3 H (4.3-11.1) K/mcL RBC 4.50 (3.82-4.97) M/mcL Hgb 13.2 (11.5-15.4) g/dL Hct 39.1 (35.3-44.9) % MCV 86.9 (83.0-100.0) fL MCH 29.3 (28.0-33.3) pg MCHC 33.8 (31.6-35.5) g/dL RDW 12.7 (11.5-14.5) % Plt Count 359 (140-400) K/mcL MPV 9.1 L (9.4-12.4) fL Seg Neutrophils % 76.0 % Band Neutrophils % 8.0 H (0-4) % Lymphocytes % 12.0 % Monocytes % 4.0 % Neutrophils # 15.4 H (1.6-8.9) K/mcL Lymphocytes # 2.2 (0.6-4.6) K/mcL Monocytes # 0.7 (0.0-1.3) K/mcL Platelet Estimate Normal (Normal) Sodium 129 L (136-145) mEq/L Potassium 4.3 (3.5-5.1) mEq/L Chloride 94 L (98-107) mEq/L Carbon Dioxide 26 (23-29) mEq/L BUN 17 (8-23) mg/dL Creatinine 0.77 (0.60-1.20) mg/dL Est GFR ( Amer) > 60 (> 60) Est GFR (Non-Af Amer) > 60 (> 60) BUN/Creatinine Ratio 22 (6-26) Glucose 104 (70-105) mg/dL Calculated Osmolality 270 L (280-300) Lactic Acid 1.5 (0.5-2.2) mmol/L Calcium 10.0 (8.6-10.3) mg/dL Total Bilirubin 0.6 (0.3-1.0) mg/dL Direct Bilirubin 0.1 (0.0-0.2) mg/dL Indirect Bilirubin 0.5 (0.0-1.2) mg/dL AST 10 L (13-39) Units/L ALT 15 (7-52) Units/L Alkaline Phosphatase 68 (34-104) Units/L Troponin I < 0.03 (< 0.04) ng/mL Serum Total Protein 7.0 (6.4-8.9) g/dL Albumin 4.0 (3.5-5.7) g/dL Globulin 3.0 (2.4-3.5) g/dL Albumin/Globulin Ratio 1.3 (1.1-2.2) Urine Color (Yellow) Urine Clarity (Clear) Urine pH (5.0-8.0) pH Units Ur Specific Western (1.010-1.025) Urine Protein (Neg-Trace) mg/dL Urine Glucose (UA) (Normal) mg/dL Urine Ketones (Negative) mg/dL Urine Blood (Negative) Urine Nitrite (Negative) Urine Bilirubin (Negative) Urine Urobilinogen (Normal) mg/dL Ur Leukocyte Esterase (Negative) Ur Culture Indicated? (NO) 06/21/18 Range/Units 12:04 WBC (4.3-11.1) K/mcL RBC (3.82-4.97) M/mcL Hgb (11.5-15.4) g/dL Hct (35.3-44.9) % MCV (83.0-100.0) fL MCH (28.0-33.3) pg MCHC (31.6-35.5) g/dL RDW (11.5-14.5) % Plt Count (140-400) K/mcL MPV (9.4-12.4) fL Seg Neutrophils % % Band Neutrophils % (0-4) % Lymphocytes % % Monocytes % % Neutrophils # (1.6-8.9) K/mcL Lymphocytes # (0.6-4.6) K/mcL Monocytes # (0.0-1.3) K/mcL Platelet Estimate (Normal) Sodium (136-145) mEq/L Potassium (3.5-5.1) mEq/L Chloride (98-107) mEq/L Carbon Dioxide (23-29) mEq/L BUN (8-23) mg/dL Creatinine (0.60-1.20) mg/dL Est GFR ( Amer) (> 60) Est GFR (Non-Af Amer) (> 60) BUN/Creatinine Ratio (6-26) Glucose (70-105) mg/dL Calculated Osmolality (280-300) Lactic Acid (0.5-2.2) mmol/L Calcium (8.6-10.3) mg/dL Total Bilirubin (0.3-1.0) mg/dL Direct Bilirubin (0.0-0.2) mg/dL Indirect Bilirubin (0.0-1.2) mg/dL AST (13-39) Units/L ALT (7-52) Units/L Alkaline Phosphatase (34-104) Units/L Troponin I (< 0.04) ng/mL Serum Total Protein (6.4-8.9) g/dL Albumin (3.5-5.7) g/dL Globulin (2.4-3.5) g/dL Albumin/Globulin Ratio (1.1-2.2) Urine Color Yellow (Yellow) Urine Clarity Clear (Clear) Urine pH 7.5 (5.0-8.0) pH Units Ur Specific Western 1.019 (1.010-1.025) Urine Protein Negative (Neg-Trace) mg/dL Urine Glucose (UA) Normal (Normal) mg/dL Urine Ketones Negative (Negative) mg/dL Urine Blood Negative (Negative) Urine Nitrite Negative (Negative) Urine Bilirubin Negative (Negative) Urine Urobilinogen Normal (Normal) mg/dL Ur Leukocyte Esterase Negative (Negative) Ur Culture Indicated? NO (NO) Elevated white count potentially secondary to patient's steroid use that she is taking at home. - Radiology Data Radiology results reviewed: Yes I reviewed the patient's radiology results. No obvious cause for patient's respiratory distress. X-ray and CT negative for pneumonia. Attestation Statement - Attestation Attestation: Patient was seen in cooperation with the physician industrial hire sales assistant. I reviewed the history physical assessment and plan, and I agree with the findings. I also had personal [id number] time with an evaluated this patient. 88-year-old female presents emergency department status post diagnosis of pneumonia yesterday at an outpatient facility. Patient was started on oral antibiotics and prednisone. She was told to come to the ER for symptoms worsen. Last night her symptoms worsen. She got more short of breath. She said she just not feeling well generally which ultimately prompted the visit today. She said she has been sick for the last couple days. She denies new symptoms no chest pain no abdominal pain, she just said the shortness of breath and her general feeling is worse. Ultimately which showed caused her to come in. Review of systems as above remainder negative. Physical exam vital signs were stable. Pulse ox is good. ENT is unremarkable. Heart regular rhythm and rate. Lungs diffuse wheezing heard throughout. Abdomen is soft and nontender. Extremities are unremarkable. Neurologically intact. Skin no rashes. Psych normal. ED course. Patient does not have a history of asthma or COPD. She does have considerable wheezing on exam. We will start breathing treatments here in the emergency department for symptomatic therapy. We will also get blood cultures and start IV antibiotics. We will anticipate admission considering the patient's age and worsening symptoms. Hemodynamically she remained stable while in the emergency department. Workup was largely negative for pneumonia or other causes of her shortness of breath. However patient continued to have wheezing throughout her stay and we had a difficult time improving her symptoms. I think the patient would respond well to a day or so of respiratory therapy as an inpatient. We spoke with the hospitalist service agreed to accept the patient for admission. Agree with resident physician assessment physician industrial hire sales assistant assessment and plan.
[2018-06-21 08:49] LABS: Hematocrit 39.1 % (35.3-44.9); Hemoglobin 13.2 g/dL (11.5-15.4); Mean Corpuscular HGB Conc 33.8 g/dL (31.6-35.5); Mean Corpuscular Hemoglobin 29.3 pg (28.0-33.3); Mean Corpuscular Volume 86.9 fL (83.0-100.0); Mean Platelet Volume 9.1 fL (9.4-12.4); Platelet Count 359 K/mcL (140-400); Red Cell Distribution Width 12.7 % (11.5-14.5)
[2018-06-21] MEDS ORDERED: Albuterol 2.5 MG/3 ML NEBULIZER ONE ×2 (08:49→08:50)
[2018-06-21] MEDS ORDERED: Albuterol 2.5 MG/3 ML NEBULIZER IH ONE (08:51)
[2018-06-21 09:09] LABS: Alanine Aminotransferase 15 Units/L (7-52); Albumin/Globulin Ratio 1.3 (1.1-2.2); Alkaline Phosphatase 68 Units/L (34-104); Aspartate Amino Transferase 10 Units/L (13-39); BUN/Creatinine Ratio 22 (6-26); Bilirubin,Direct 0.1 mg/dL (0.0-0.2); Bilirubin,Indirect 0.5 mg/dL (0.0-1.2); Bilirubin,Total 0.6 mg/dL (0.3-1.0); Blood Urea Nitrogen 17 mg/dL (8-23); Carbon Dioxide 26 mEq/L (23-29); Chloride 94 mEq/L (98-107); Glucose 104 mg/dL (70-105); Osmolality,Calculated 270 (280-300); Potassium 4.3 mEq/L (3.5-5.1); Sodium 129 mEq/L (136-145); Troponin I < 0.03 ng/mL (< 0.04); eGFR For Non-African Americans > 60 (> 60)
[2018-06-21] MEDS: Albuterol 2.5 MG/3 ML NEBULIZER IH ONE (09:15)
[2018-06-21 09:51] LABS: Lymphocytes # 2.2 K/mcL (0.6-4.6); Monocytes # 0.7 K/mcL (0.0-1.3); Neutrophils # 15.4 K/mcL (1.6-8.9); Platelet Estimate Normal (Normal)
[2018-06-21] MEDS ORDERED: Isovue-370 500 ML BOTTLE IVP ONE (10:38)
[2018-06-21 12:15] LABS: Bilirubin,Urine Negative (Negative); Blood,Urine Negative (Negative); Clarity,Urine Clear (Clear); Color,Urine Yellow (Yellow); Glucose,Urine (UA) Normal (Normal); Ketones,Urine Negative (Negative); Leukocyte Esterase,Urine Negative (Negative); Nitrite,Urine Negative (Negative); PH,Urine 7.5 pH Units (5.0-8.0); Protein,Urine Negative (Neg-Trace); Specific Gravity,Urine 1.019 (1.010-1.025); Urobilinogen,Urine Normal (Normal)
--- NOTE | 2018-06-21 17:39 | Internal Med History&Physical ---
Date of Encounter: 06/21/18 Time of Encounter: 17:00 Internal Medicine - H&P: HPI Chief complaint: Cough/shortness of breath Admitted From: Home Plans for Post Hospital Care: Home History of present illness: Patient is an 88-year-old female with past medical history significant for hypertension and GERD who presents to the ER on 06/21/18 due to shortness of breath and cough. Patient is a poor historian but who is at bedside reports patient has had a two-week history of nonproductive cough with shortness of breath. She was seen by primary care provider and was started on oral antibiotic which was later discontinued due to concerns for diarrhea. Patients symptoms did not improve so decided to bring patient into the ER for evaluation. In the ER, patient was found to have leukocytosis with white blood cell count of 18.3. Chest x-ray showed no acute cardiopulmonary disease and ET of the chest not show any worrisome findings for early pneumonia or bronchitis and without any evidence of PE. Patient was given a one-time dose of ceftriaxone in the ER admitted to the medical surgical floor for suspected pneumonia. Past Med Surg Social Fam HX - Past Medical History Medical history: arthritis, GERD, hypertension, other Additional medical history: AAA Psychiatric history: no psych history - Past Surgical History Surgical History: non-contributory - Social History Smoking Status: Never smoker Smokeless Tobacco Status: No Alcohol use: none Drug use: none - Family History Mother Living Status: Father Living Status: Hx Family Respiratory Disorders: Yes Brother Living Status: Internal Medicine - H&P: Meds Cholecalciferol (Vitamin D3) [Vitamin D3] 1,000 unit PO DAILY 12/25/17 [History] Cyanocobalamin (Vitamin B-12) [Vitamin B12] 1,000 mcg PO DAILY 12/25/17 [History] Metoprolol Succinate [Toprol Xl] 25 mg PO DAILY 12/25/17 [History] Losartan [Cozaar] 100 mg PO DAILY #30 tablet 12/29/17 [Rx] amLODIPine [Norvasc] 5 mg PO DAILY #30 tablet 12/29/17 [Rx] Azithromycin [Zithromax] 250 mg PO DAILY 06/21/18 [History] Meloxicam 15 mg PO HS PRN 06/21/18 [History] Omeprazole [PriLOSEC] 40 mg PO DAILY 06/21/18 [History] predniSONE [PredniSONE] 40 mg PO DAILY 06/21/18 [History] Allergy/AdvReac Type Severity Reaction Status Date / Time No Known Allergies Allergy Verified 12/25/17 18:50 All Systems PM: A 10-system review of systems was performed and is negative for pertinent findings except as documented above in the HPI. - Constitutional Vitals: Temp Pulse Resp BP Pulse Ox 97.5 F L 88 17 168/79 98 06/21/18 16:50 06/21/18 16:50 06/21/18 16:50 06/21/18 16:50 06/21/18 17:13 General appearance: Present: A&O X 3, no acute distress Exam: As above - Head Head exam: Present: normocephalic - Eye Eye exam: Present: normal appearance - ENT ENT exam: Present: mucous membranes moist - Respiratory Respiratory exam: Present: CTAB. Absent: accessory muscle use, rales, rhonchi, wheezes - Cardiovascular Cardiovascular exam: Present: RRR, +S1, +S2. Absent: diastolic murmur, gallop, rubs, systolic murmur - GI/Abdominal GI/Abdominal exam: Present: normal bowel sounds, soft, no peritoneal signs. Absent: distended, tenderness - Extremities Exam Extremities exam: Absent: pedal edema - Neurological Exam Neurological exam: Present: oriented X3 - Psychiatric Psychiatric exam: Present: normal mood - Skin Skin exam: Present: normal color Internal Med - H&P Results - Labs CBC & Chem 7: 06/21/18 08:21 06/21/18 08:21 Labs: Short CBC 06/21/18 Range/Units 08:21 WBC 18.3 H (4.3-11.1) K/mcL Hgb 13.2 (11.5-15.4) g/dL Hct 39.1 (35.3-44.9) % Plt Count 359 (140-400) K/mcL Neutrophils # 15.4 H (1.6-8.9) K/mcL BMP 06/21/18 08:21 Sodium 129 L Potassium 4.3 Chloride 94 L Carbon Dioxide 26 BUN 17 Creatinine 0.77 Glucose 104 Calcium 10.0 Cardiac Enzymes 06/21/18 Range/Units 08:21 Troponin I < 0.03 (< 0.04) ng/mL Liver Function 06/21/18 Range/Units 08:21 Total Bilirubin 0.6 (0.3-1.0) mg/dL Direct Bilirubin 0.1 (0.0-0.2) mg/dL AST 10 L (13-39) Units/L ALT 15 (7-52) Units/L Alkaline Phosphatase 68 (34-104) Units/L Albumin 4.0 (3.5-5.7) g/dL Urine 06/21/18 Range/Units 12:04 Urine Color Yellow (Yellow) Urine Clarity Clear (Clear) Urine pH 7.5 (5.0-8.0) pH Units Ur Specific [place] 1.019 (1.010-1.025) Urine Protein Negative (Neg-Trace) mg/dL Urine Glucose (UA) Normal (Normal) mg/dL - Impressions ITS Impressions Chest X-Ray 06/21/18 08:21 IMPRESSION: No acute cardiopulmonary disease. D/ / Jailene Menjivar MD / Jailene Menjivar MD Interpreting Provider: Jailene Menjivar MD Chest CT 06/21/18 10:38 IMPRESSION: Clear appearing lungs except for minimal bibasilar atelectasis. No finding worrisome for early pneumonia or bronchitis. Early bullous changes present. No evident PE. D/ / Esequiel Salinas MD / Esequiel Salinas MD Interpreting Provider: Esequiel Salinas MD - Assessment and Plan (1) Leukocytosis Current Visit: Yes Status: Acute Assessment and plan: Patient presents due to shortness of breath and cough found to have a white blood cell count of 18.3 but afebrile Chest x-ray showed no acute cardiopulmonary disease and CT of the chest not show any worrisome findings for early pneumonia or bronchitis and without any evidence of PE. Will order respiratory panel. Will continue IV antibiotics started in the ER and monitor leukocytosis Qualifiers: Leukocytosis type: unspecified Qualified Code(s): D72.829 - Elevated white blood cell count, unspecified (2) Hyponatremia Current Visit: No Status: Acute Assessment and plan: Patient with a history of chronic hyponatremia Continue to monitor (3) HTN (hypertension) Current Visit: No Status: Chronic Assessment and plan: Continue home dose of Cozaar and Norvasc once med reconciliation completed Qualifiers: Hypertension type: essential hypertension Qualified Code(s): I10 - Essential (primary) hypertension (4) DVT prophylaxis Current Visit: No Status: Acute Assessment and plan: Heparin subcutaneous - Time Spent With Patient Total time spent is greater than 50% in coordination of care (as documented) at patient's floor/unit and/or counseling patient:
[2018-06-21] MEDS ORDERED: Naloxone 0.4 MG/ML INJ IVP PRN (17:51)
[2018-06-21] MEDS ORDERED: GuaiFENesin/Dextromethorphan TABLET PO PRN (17:57)
[2018-06-21] MEDS ORDERED: Azithromycin 500 MG in D5% in Water 250 ML IVPB SCH (18:00)
[2018-06-21] MEDS: Ipratropium/Albuterol Neb 3 ML IH SCH ×2 (19:38→23:56)
[2018-06-21] MEDS: *HR* Heparin 5,000 UNIT/ML VIAL SQ SCH (19:53)
[2018-06-21 22:25] LABS: Adenovirus Not Detected (Not Detect); Bordetella Pertussis Not Detected (Not Detect); Chlamydophila pneumoniae Not Detected (Not Detect); Coronavirus 229E Not Detected (Not Detect); Coronavirus HKU1 Not Detected (Not Detect); Coronavirus NL63 Not Detected (Not Detect); Coronavirus OC43 Not Detected (Not Detect); Human Metapneumovirus Not Detected (Not Detect); Human Rhinovirus/Enterovirus Not Detected (Not Detect); Influenza A Subtype 2009 H1 Not Detected (Not Detect); Influenza A Untypeable Not Detected (Not Detect); Influenza B Not Detected (Not Detect); Mycoplasma pneumoniae Not Detected (Not Detect); Parainfluenza Virus 1 Not Detected (Not Detect); Parainfluenza Virus 2 Not Detected (Not Detect); Parainfluenza Virus 3 Not Detected (Not Detect); Parainfluenza Virus 4 Not Detected (Not Detect); Respiratory Syncytial Virus Not Detected (Not Detect)
[2018-06-21] MEDS: Oseltamivir Phosphate 30 MG CAPSULE PO SCH (23:57)
--- NOTE | 2018-06-22 02:31 | Event Note ---
Date of Encounter: 06/21/18 Time of Encounter: 22:28 Alerted by patient's nurse RONNIE Boyd that patient had tested positive for influenza A H3. Droplet precautions ordered and Tamiflu 30 mg by mouth twice a day 5 days ordered per Pharmacy recommendations. We will continue monitoring patient closely overnight.
[2018-06-22] MEDS: Ipratropium/Albuterol Neb 3 ML IH SCH ×5 (03:59→20:15)
[2018-06-22] MEDS: *HR* Heparin 5,000 UNIT/ML VIAL SQ SCH ×2 (05:28→16:57)
[2018-06-22] MEDS: *HR* Promethazine 25 MG/ML VIAL IVP PRN ×2 (06:35→20:03)
[2018-06-22 07:04] LABS: Basophils # 0.1 K/mcL (0.0-0.2); Basophils % 0.5 %; Eosinophils % 0.2 %; Hematocrit 36.6 % (35.3-44.9); Hemoglobin 12.2 g/dL (11.5-15.4); Immature Granulocytes % 2.6 % (0-4); Lymphocytes # 2.9 K/mcL (0.6-4.6); Lymphocytes % 27.4 %; Mean Corpuscular HGB Conc 33.3 g/dL (31.6-35.5); Mean Corpuscular Hemoglobin 29.5 pg (28.0-33.3); Mean Corpuscular Volume 88.4 fL (83.0-100.0); Mean Platelet Volume 9.6 fL (9.4-12.4); Monocytes # 1.3 K/mcL (0.0-1.3); Monocytes % 12.4 %; Platelet Count 321 K/mcL (140-400); Red Blood Count 4.14 M/mcL (3.82-4.97); Red Cell Distribution Width 13.5 % (11.5-14.5); Segmented Neutrophils % 56.9 %
[2018-06-22 07:30] LABS: BUN/Creatinine Ratio 19 (6-26); Blood Urea Nitrogen 14 mg/dL (8-23); Calcium 9.5 mg/dL (8.6-10.3); Carbon Dioxide 25 mEq/L (23-29); Chloride 95 mEq/L (98-107); Glucose 77 mg/dL (70-105); Osmolality,Calculated 271 (280-300); Potassium 3.8 mEq/L (3.5-5.1); Sodium 131 mEq/L (136-145); eGFR For Non-African Americans > 60 (> 60)
[2018-06-22] MEDS ORDERED: cefTRIAXone 1,000 MG in Water for inj. (sterile) 20 ML 10 ML IVP SCH (09:00)
[2018-06-22] MEDS: Acetaminophen 325 MG TABLET PO PRN (09:09)
[2018-06-22] MEDS: Oseltamivir Phosphate 30 MG CAPSULE PO SCH ×2 (09:09→19:59)
--- NOTE | 2018-06-22 09:33 | Internal Med Progress Note ---
Hospitalist Progress Note - Encounter Date of Encounter: 06/22/18 Time of Encounter: 11:00 - Subjective Interval History: Patient presented with shortness of breath and cough who tested positive for influenza A. There were concerns for pneumonia as an outpatient however chest x-ray showed no acute cardiopulmonary disease and CT of the chest did not show any worrisome findings of early pneumonia or bronchitis either. Patient was started on Tamiflu overnight and will discontinue IV antibiotics. - Exam Vitals: Temp Pulse Resp BP Pulse Ox 98 F 97 16 123/75 98 06/22/18 07:22 06/22/18 07:22 06/22/18 07:22 06/22/18 07:22 06/22/18 07:22 Exam: As above - Assessment and Plan (1) Influenza A Current Visit: Yes Status: Acute Assessment and Plan: Patient tested positive for influenza A on respiratory panel on admission Tamiflu started overnight Continue supportive care (2) Hyponatremia Current Visit: No Status: Acute Assessment and Plan: Patient with a history of chronic hyponatremia Continue to monitor (3) HTN (hypertension) Current Visit: No Status: Chronic Assessment and Plan: Continue home dose of Cozaar and Norvasc DVT Prophylaxis: Heparin subcutaneous - Time Spent with Patient Total time spent is greater than 50% in coordination of care (as documented) at patient's floor/unit and/or counseling patient: Internal Medicine: Result - Labs CBC & Chem 7: 06/22/18 04:56 06/22/18 04:56 Labs: Short CBC 06/21/18 06/22/18 Range/Units 08:21 04:56 WBC 10.5 (4.3-11.1) K/mcL Hgb 12.2 (11.5-15.4) g/dL Hct 36.6 (35.3-44.9) % Plt Count 321 (140-400) K/mcL Neutrophils # 15.4 H 6.0 (1.6-8.9) K/mcL BMP 06/22/18 04:56 Sodium 131 L Potassium 3.8 Chloride 95 L Carbon Dioxide 25 BUN 14 Creatinine 0.75 Glucose 77 Calcium 9.5 Urine 06/21/18 Range/Units 12:04 Urine Color Yellow (Yellow) Urine Clarity Clear (Clear) Urine pH 7.5 (5.0-8.0) pH Units Ur Specific [place] 1.019 (1.010-1.025) Urine Protein Negative (Neg-Trace) mg/dL Urine Glucose (UA) Normal (Normal) mg/dL - Impressions Impressions Chest CT 06/21/18 10:38 IMPRESSION: Clear appearing lungs except for minimal bibasilar atelectasis. No finding worrisome for early pneumonia or bronchitis. Early bullous changes present. No evident PE. D/ / Esequiel Salinas MD / Esequiel Salinas MD Interpreting Provider: Esequiel Salinas MD Consult Discharge Plan - Plan Referrals: Lukas Petersen DO [Primary Care Provider] - (3) HTN (hypertension) Qualifiers: Hypertension type: essential hypertension Qualified Code(s): I10 - Essential (primary) hypertension
[2018-06-22] MEDS: Cyanocobalamin (B-12) 1,000 MCG TABLET PO SCH (10:27)
[2018-06-22] MEDS: amLODIPine 5 MG TABLET PO SCH (10:27)
[2018-06-22] MEDS: Cholecalciferol (D-3) 1,000 UNIT TABLET PO SCH (10:27)
[2018-06-22] MEDS: Metoprolol XL (24 HR) Succ 25 MG TAB.ER.24H PO SCH (10:27)
[2018-06-22] MEDS: Simethicone 80 MG TAB.CHEW PO PRN (22:09)
[2018-06-23] MEDS ORDERED: Levalbuterol Neb 1.25 MG/3 ML IH PRN (00:20)
[2018-06-23] MEDS: Ipratropium/Albuterol Neb 3 ML IH SCH (03:29)
[2018-06-23] MEDS: *HR* Heparin 5,000 UNIT/ML VIAL SQ SCH ×2 (05:52→17:28)
[2018-06-23] MEDS: Metoprolol XL (24 HR) Succ 25 MG TAB.ER.24H PO SCH (09:37)
[2018-06-23] MEDS: amLODIPine 5 MG TABLET PO SCH (09:37)
[2018-06-23] MEDS: Cholecalciferol (D-3) 1,000 UNIT TABLET PO SCH (09:37)
[2018-06-23] MEDS: Oseltamivir Phosphate 30 MG CAPSULE PO SCH ×2 (09:37→20:33)
[2018-06-23] MEDS: Cyanocobalamin (B-12) 1,000 MCG TABLET PO SCH (09:37)
[2018-06-23] MEDS: Acetaminophen 325 MG TABLET PO PRN ×2 (13:42→20:33)
[2018-06-23] MEDS ORDERED: Ibuprofen 400 MG TABLET PO PRN (16:40)
--- NOTE | 2018-06-23 18:55 | Internal Med Progress Note ---
Hospitalist Progress Note - Encounter Date of Encounter: 06/23/18 Time of Encounter: 11:00 - Subjective Interval History: Patient still reports a generalized weakness therefore will observe for an additional 24 hours with anticipation for discharge on 06/24/18 Continue treatment for influenza A with Tamiflu. - Exam Vitals: Temp Pulse Resp BP Pulse Ox 98 F 76 16 116/75 96 06/23/18 15:34 06/23/18 15:34 06/23/18 15:34 06/23/18 15:34 06/23/18 15:34 Exam: As above - Assessment and Plan (1) Influenza A Current Visit: Yes Status: Acute Assessment and Plan: Patient still reports a generalized weakness therefore will observe for an additional 24 hours with anticipation for discharge on 06/24/18 Continue treatment for influenza A with Tamiflu. (2) Hyponatremia Current Visit: No Status: Acute Assessment and Plan: Patient with a history of chronic hyponatremia Continue to monitor (3) HTN (hypertension) Current Visit: No Status: Chronic Assessment and Plan: Continue home dose of Cozaar and Norvasc DVT Prophylaxis: Heparin subcutaneous - Time Spent with Patient Total time spent is greater than 50% in coordination of care (as documented) at patient's floor/unit and/or counseling patient: Internal Medicine: Result - Labs CBC & Chem 7: 06/22/18 04:56 06/22/18 04:56 Consult Discharge Plan - Plan Referrals: Lukas Petersen DO [Primary Care Provider] - 07/01/18 1:00 pm (3) HTN (hypertension) Qualifiers: Hypertension type: essential hypertension Qualified Code(s): I10 - Essential (primary) hypertension
[2018-06-23] MEDS: Simethicone 80 MG TAB.CHEW PO PRN (21:25)
[2018-06-24] MEDS: *HR* Heparin 5,000 UNIT/ML VIAL SQ SCH (04:27)
[2018-06-24] MEDS: *HR* Promethazine 25 MG/ML VIAL IVP PRN (04:27)
[2018-06-24] MEDS: Acetaminophen 325 MG TABLET PO PRN (08:31)
[2018-06-24] MEDS: Cholecalciferol (D-3) 1,000 UNIT TABLET PO SCH (08:31)
[2018-06-24] MEDS: amLODIPine 5 MG TABLET PO SCH (08:31)
[2018-06-24] MEDS: Oseltamivir Phosphate 30 MG CAPSULE PO SCH (08:32)
[2018-06-24] MEDS: Metoprolol XL (24 HR) Succ 25 MG TAB.ER.24H PO SCH (08:32)
[2018-06-24] MEDS: Cyanocobalamin (B-12) 1,000 MCG TABLET PO SCH (08:32)
[2018-06-24 10:40] VITALS: BP 112/68
[2018-06-24] MEDS: Simethicone 80 MG TAB.CHEW PO PRN (12:53)
--- NOTE | 2018-06-24 15:00 | Discharge Summary ---
Date of Encounter: 06/24/18 Time of Encounter: 11:00 - Discharge Diagnosis (1) Influenza A Priority: Primary Status: Acute (2) Hyponatremia Priority: Secondary Status: Acute (3) HTN (hypertension) Priority: Secondary Status: Chronic Qualifiers: Hypertension type: essential hypertension Qualified Code(s): I10 - Essential (primary) hypertension Hospital course: Patient is an 88-year-old female with past medical history significant for hypertension and GERD who presents to the ER on 06/21/18 due to shortness of breath and cough. Patient is a poor historian but who is at bedside reports patient has had a two-week history of nonproductive cough with shortness of breath. She was seen by primary care provider and was started on oral antibiotic which was later discontinued due to concerns for diarrhea. Patients symptoms did not improve so decided to bring patient into the ER for evaluation. In the ER, patient was found to have leukocytosis with white blood cell count of 18.3. Chest x-ray showed no acute cardiopulmonary disease and ET of the chest not show any worrisome findings for early pneumonia or bronchitis and without any evidence of PE. During patients hospital stay she was tested positive for influenza A and was treated with Tamiflu and her symptoms improved. Patient will be discharged home to complete a course of Tamiflu. - Time Spent with Patient Total time spent providing and/or coordinating discharge services: - Discharge Medications Prescriptions: New Oseltamivir Phosphate [Tamiflu] 30 mg PO BID 4 Days #8 capsule Continue Metoprolol Succinate [Toprol Xl] 25 mg PO DAILY Cholecalciferol (Vitamin D3) [Vitamin D3] 1,000 unit PO DAILY Cyanocobalamin (Vitamin B-12) [Vitamin B12] 1,000 mcg PO DAILY amLODIPine [Norvasc] 5 mg PO DAILY #30 tablet Losartan [Cozaar] 100 mg PO DAILY #30 tablet Meloxicam 15 mg PO HS PRN PRN Reason: Pain Omeprazole [PriLOSEC] 40 mg PO DAILY Discontinued Azithromycin [Zithromax] 250 mg PO DAILY predniSONE [PredniSONE] 40 mg PO DAILY Home Medications: Cholecalciferol (Vitamin D3) [Vitamin D3] 1,000 unit PO DAILY 12/25/17 [History] Cyanocobalamin (Vitamin B-12) [Vitamin B12] 1,000 mcg PO DAILY 12/25/17 [History] Metoprolol Succinate [Toprol Xl] 25 mg PO DAILY 12/25/17 [History] Losartan [Cozaar] 100 mg PO DAILY #30 tablet 12/29/17 [Rx] amLODIPine [Norvasc] 5 mg PO DAILY #30 tablet 12/29/17 [Rx] Meloxicam 15 mg PO HS PRN 06/21/18 [History] Omeprazole [PriLOSEC] 40 mg PO DAILY 06/21/18 [History] Oseltamivir Phosphate [Tamiflu] 30 mg PO BID 4 Days #8 capsule 06/24/18 [Rx] Allergies/Adverse Reactions: Allergy/AdvReac Type Severity Reaction Status Date / Time No Known Allergies Allergy Verified 12/25/17 18:50 Date of admission: 06/21/18 14:08 Primary care physician: Lukas Petersen DO Consults: 06/23/18 08:51 Consult to Nurse Navigator [CONS] Routine Comment: PNEUMONIA - Constitutional Vitals: Temp Pulse Resp BP Pulse Ox 97.8 F 75 17 112/68 99 06/24/18 10:38 06/24/18 10:38 06/24/18 10:38 06/24/18 10:38 06/24/18 10:38 General appearance: Present: A&O X 3, no acute distress Exam: Gen.: Nonacute distress, alert and oriented 3 Skin: Normal color - Patient Status Disposition: Home, Self-Care Condition: Good - Discharge Instructions Instructions: Oseltamivir (By mouth), Influenza (DC) Follow Up With: Lukas Petersen DO [Primary Care Provider] - 07/01/18 1:00 pm
--- NOTE | 2018-06-26 09:15 | Electrocardiograph Report ---
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
== END 2018-06-24 16:14 | disposition home or self-care (01) ==
LOC: 3BNU 07:57 → EMEROOARM 07:57 → SUATTDRO 14:08 → 3BNU 16:31
PROVIDERS: ADMIT Internal Medicine; ATTEND Hospitalist